=== PATIENT | female | born 1945 | race Caucasian/White ===

== ENCOUNTER 2016-11-14 06:29 | Emergency (ER) | payer MEDICARE, BC ==
[2016-11-14] MEDS ORDERED: DEXAMETHASONE 10 MG/ML VIAL PO STA (07:20)
[2016-11-14] MEDS ORDERED: PROMETHAZINE 25 MG/1 ML VIAL IM STA (07:20)
[2016-11-14] MEDS ORDERED: HYDROmorphone 1 MG/ML SYRINGE IM STA (07:20)
[2016-11-14] MEDS ORDERED: DEXAMETHASONE 10 MG/ML VIAL ONE (07:25)
[2016-11-14] MEDS ORDERED: PROMETHAZINE 25 MG/1 ML VIAL ONE (07:25)
[2016-11-14] MEDS ORDERED: HYDROmorphone 1 MG/ML SYRINGE ONE (07:25)
[2016-11-14] MEDS ORDERED: CHERRY SYRUP 10 ML UDC PO ONE (07:26)
--- NOTE | 2016-11-14 07:28 | ED Physician Documentation ---
PD HPI BACK PAIN - Stated complaint Stated Complaint: BACK PX/R LEG NUMB - Chief complaint Chief Complaint: Back Pain - History obtained from History obtained from: Patient - History of Present Illness Timing - onset: How many weeks ago (2) Timing - details: Still present Location: Lower, Right Quality: Pain Associated symptoms: Numbness (Right foot.). No: Fever, Weakness, Incontinent of urine Worsened by: Movement, Twisting Contributing factors: Trauma (fell two weeks ago, twisting her back) Similar symptoms before: Has not had sx before - Additional information Additional information: The patient is a 70-year-old female who presents with right lower back pain radiating down her right leg to her foot. She fell 2 weeks ago twisting her lower back. The pain became worse last night when she took a step up and felt a twinge in her back. She denies fever or urinary incontinence. She denies history of similar symptoms in the past. Review of Systems Constitutional: denies: Fever Ears: denies: Tinnitus/ringing Nose: denies: Congestion Throat: denies: Sore throat Cardiac: denies: Chest pain / pressure Respiratory: denies: Dyspnea, Cough GI: denies: Abdominal Pain, Nausea, Vomiting : denies: Dysuria, Incontinent Skin: denies: Rash Musculoskeletal: reports: Back pain. denies: Neck pain, Extremity swelling Neurologic: reports: Numbness. denies: Focal weakness, Headache PD PAST MEDICAL HISTORY - Past Medical History Past Medical History: Yes Cardiovascular: None Respiratory: None Neuro: None Endocrine/Autoimmune: None MISSILEMAN: Endometriosis Other Past Medical History: vertigo - Past Surgical History Past Surgical History: Yes - Present Medications Home Medications: Ambulatory Orders Medication Instructions Recorded Confirmed Cyclobenzaprine [Flexeril] 10 mg PO DAILY 11/14/16 11/14/16 Diclofenac Sodium 50 mg PO DAILY 11/14/16 11/14/16 HYDROcod/ACETAM 5/325 [Sycamore 5/325] 1 - 2 ea PO Q6H PRN #20 tablet 11/14/16 Prednisone 20 mg PO DAILY #5 tablet 11/14/16 Promethazine [Phenergan] 25 - 50 mg PO Q6H PRN #10 tab 11/14/16 - Allergies Allergies/Adverse Reactions: Allergies Allergy/AdvReac Type Severity Reaction Status Date / Time No Known Drug Allergies Allergy Verified 11/14/16 06:36 - Social History Does the pt smoke?: No Smoking Status: Never smoker Does the pt drink ETOH?: Yes Does the pt have substance abuse?: No - Immunizations Immunizations are current?: Yes - POLST Patient has POLST: No PD ED PE NORMAL - Vitals Vital signs reviewed: Yes (Borderline systolic hypertension initially.) - General General: Alert and oriented X 3, Well developed/nourished - HEENT HEENT: Atraumatic - Neck Neck: No bony TTP, No JVD - Cardiac Cardiac: RRR, No murmur - Respiratory Respiratory: No respiratory distress, Clear bilaterally - Abdomen Abdomen: Soft, Non tender - Back Back: No CVA TTP, No spinal TTP, Other (Tenderness to palpation over the right sacroiliac joint and sciatic notch. No tenderness to palpation over the spinous processes.) - Derm Derm: No rash - Extremities Extremities: No tenderness to palpate, No edema, No calf tenderness / cord - Neuro Neuro: Alert and oriented X 3, No motor deficit, Other (Decreased light touch sensation on the lateral aspect of the right foot and ankle. Deep tendon reflexes are 1+ and equal bilaterally at the patellar and Achilles tendons.) Results - Vitals Vitals: Oxygen O2 Source Room air PD MEDICAL DECISION MAKING - ED course Complexity details: reviewed old records, re-evaluated patient, considered differential, d/w patient ED course: The patient's presentation is most consistent with right-sided sciatica. There is no tenderness to palpation along the spinous processes, but tenderness is located over the right sciatic notch. There is slightly decreased sensation lateral aspect of the right foot. Her presentation does not suggest epidural abscess, cauda equina syndrome, or spinal stenosis. Treatment in the emergency department included administration of Dilaudid 1 mg IM, with Phenergan 12.5 mg IM. Dexamethasone 10 mg was administered orally. Because of associated nausea, Zofran 4 mg was administered orally. The patient' s pain markedly improved with the above treatment. She is being discharged with prescriptions for Vicodin, prednisone, and Phenergan. I discussed with her the expected course of illness, symptomatic treatment an outpatient followup, as well as potentially worrisome signs or symptoms that should prompt reevaluation in the emergency department. I discussed with her that if her symptoms persist that imaging studies such as MRI or CT may be clinically warranted. Departure - Departure Disposition: 01 Home, Self Care Clinical Impression: Sciatica Qualifiers: Laterality: right Qualified Code(s): M54.31 - Sciatica, right side Condition: Stable Instructions: ED Sciatica Prescriptions: HYDROcod/ACETAM 5/325 [Sycamore 5/325] 1 - 2 ea PO Q6H PRN #20 tablet PRN Reason: Pain Promethazine [Phenergan] 25 - 50 mg PO Q6H PRN #10 tab PRN Reason: Nausea / Vomiting Prednisone 20 mg PO DAILY #5 tablet Comments: Apply icepack to your lower back intermittently for the next 3 days. You can use Vicodin as prescribed if needed for pain. Take prednisone once daily as prescribed for the next 5 days. Let pain be your guide to activity level. Follow up with your primary physician within 2 weeks. Call to schedule an appointment. Return to the emergency department if you develop increasing pain, fever, urinary incontinence, or otherwise worsening symptoms. Discharge Date/Time: 11/14/16 10:31
[2016-11-14] MEDS ORDERED: ONDANSETRON ODT 4 MG TABLET TL STA ×2 (08:13→09:53)
[2016-11-14] MEDS ORDERED: ONDANSETRON ODT 4 MG TABLET ONE ×2 (08:14→09:54)
[2016-11-14 10:26] VITALS: BP 135/70
== END 2016-11-14 10:31 | disposition home or self-care (01) ==
LOC: ED 06:29
DX: M54.41 Lumbago with sciatica, right side (principal)
CPT/HCPCS: 96372; 99283; A9270; J1170; Q0162